=== PATIENT | female | born 1950 | race Caucasian/White ===

== ENCOUNTER → 2020-10-02 15:49 | Outpatient (CLI) | payer MEDICARE, SELFPAY ==
--- NOTE | ~2020-10-02 | XR_ITS ---
XR clavicle LT DATE: 10/02/2020 16:08 INDICATION: Fracture of clavicle TECHNIQUE: AP and angled AP views COMPARISON: None FINDINGS: There is a mildly inferiorly displaced comminuted fracture at the lateral aspect of the cla vicle just proximal to the lateral articular margin. Alignment appears intact at the acromioclavicula r and glenohumeral joints. Diffuse osteopenia. IMPRESSION: Comminuted fracture of the lateral shaft of left clavicle Reviewed, dictated and finalized at location B. ASSEMBLER
== END ==
PROVIDERS: PCP Family Medicine; Visit Provider Physician Assistant
DX: S42.002A Fracture of unspecified part of left clavicle, initial encounter for closed fracture (principal); X58.XXXA Exposure to other specified factors, initial encounter
CPT/HCPCS: 73000

== ENCOUNTER → 2022-12-12 12:10 | Outpatient (CLI) | payer MEDICARE, SELFPAY ==
--- NOTE | ~2022-12-12 | DEXA_ITS ---
Bone Density Report Name: GUERITA LANGE Age: 72 Sex: Female Ethnicity: White Date of : 1950 Indication: osteopenia; height loss; prior fracture; asthma or emphysema; postmenopausal Referring Provider: Janette Blanchard Study: Bone densitometry was performed. Exam Date: December 12, 2022 Accession number: [id number] Bone Density: Region BMD T-score Z-score Classification AP Spine (L1-L4) 0.922 -1.1 1.0 Osteopenia Femoral Neck (Left) 0.638 -1.9 -0.1 Osteopenia Total Hip (Left) 0.777 -1.4 0.2 Osteopenia Femoral Neck (Right) 0.661 -1.7 0.1 Osteopenia Total Hip (Right) 0.791 -1.2 0.3 Osteopenia Total Hip Mean 0.784 -1.3 0.3 Osteopenia World Health Organization criteria for BMD impression classify patients as: Normal (T-score at or above -1.0), Osteopenia (T-score between -1.0 and -2.5), or Osteoporosis (T-score at or below -2.5). 10-year Fracture Risk(1): Major Osteoporotic Fracture 15% Hip Fracture 2.9% Reported Risk Factors: [place] (), Neck BMD=0.638, BMI=19.6, previous fracture (1) FRAX(R) Version 3.08. Fracture probability calculated for an untreated patient. Fracture probability may be lower if the patient has received treatment. Previous Exams: Region Exam Age BMD T-score BMD Change BMD Change Date g/cm2 vs Baseline vs Previous AP Spine(L1-L4) 12/12/2022 72 0.922 -1.1 -0.008 -0.008 07/12/2019 69 0.929 -1.1 Total Hip(Left) 12/12/2022 72 0.777 -1.4 -0.031* -0.031* 07/12/2019 69 0.808 -1.1 Total Hip(Right) 12/12/2022 72 0.791 -1.2 0.006 0.006 07/12/2019 69 0.785 -1.3 *Denotes significance at 95% confidence level, LSC for AP Spine = 0.022 g/cm2, LSC for Total Hip = 0.027 g/cm2 Clinical Information Provided by Patient: Has had a low trauma fracture Has the following medical conditions: Asthma or Emphysema Patient maximum height was 70.0 Menopause Age: 57 No regular weight bearing exercise Does not regularly consume dairy products Drinks caffeinated beverages Onset of menses at age 16 Number of children 2 Impression: The patient has low bone mass, based on the Left Femoral Neck T-score. The patient has an estimated ten-year risk of hip fracture of 2.9% and an estimated ten-year risk of major fracture of 15%, based on the WHO FRAX algorithm. The patient has risk factors, including: previous fracture. The BMD for the Total Hip(Left) decreased, changing
== END ==
PROVIDERS: PCP Family Medicine; Visit Provider Physician Assistant
DX: Z78.0 Asymptomatic menopausal state (principal); M85.88 Other specified disorders of bone density and structure, other site; M85.852 Other specified disorders of bone density and structure, left thigh; M85.851 Other specified disorders of bone density and structure, right thigh
CPT/HCPCS: 77080

== ENCOUNTER 2025-03-27 14:22 | Outpatient (CLI) | payer MEDICARE, SELFPAY ==
--- NOTE | ~2025-03-27 | DEXA_ITS ---
Bone Density Report Name: GUERITA LANGE Age: 75 Sex: Female Ethnicity: White Date of : 1950 Indication: osteopenia; height loss; asthma or emphysema; Referring Provider: IRA PACHECO Study: Bone densitometry was performed. Exam Date: March 27, 2025 Accession number: [id number] Bone Density: Region BMD T-score Z-score Classification AP Spine(L1-L4) 0.914 -1.2 1.1 Osteopenia Femoral Neck (Left) 0.617 -2.1 -0.1 Osteopenia Total Hip (Left) 0.793 -1.2 0.5 Osteopenia Femoral Neck (Right) 0.655 -1.7 0.2 Osteopenia Total Hip (Right) 0.784 -1.3 0.4 Osteopenia Total Hip Mean 0.789 -1.3 0.5 Osteopenia World Health Organization criteria for BMD impression classify patients as: Normal (T-score at or above -1.0), Osteopenia (T-score between -1.0 and -2.5), or Osteoporosis (T-score at or below -2.5). 10-year Fracture Risk(1): Major Osteoporotic Fracture 12% Hip Fracture 2.8% Reported Risk Factors: [place] (), Neck BMD=0.617, BMI=21.0 (1) FRAX(R) Version 3.08. Fracture probability calculated for an untreated patient. Fracture probability may be lower if the patient has received treatment. Previous Exams: Region Exam Age BMD T-score BMD Change BMD Change Date g/cm2 vs Baseline vs Previous AP Spine (L1-L4) 03/27/2025 75 0.914 -1.2 -0.007 (-0.8%) -0.007 (-0.8%) 12/12/2022 72 0.922 -1.1 Total Hip(Left) 03/27/2025 75 0.793 -1.2 0.016 (2.1%) 0.016 (2.1%) 12/12/2022 72 0.777 -1.4 Total Hip(Right) 03/27/2025 75 0.784 -1.3 -0.007 (-0.9%) -0.007 (-0.9%) 12/12/2022 72 0.791 -1.2 *Denotes significance at 95% confidence level, LSC for AP Spine = 0.022 g/cm2, LSC for Total Hip = 0.027 g/cm2 Clinical Information Provided by Patient: Has used the following medications: Vitamin D, Calcium, lisinopril Has the following medical conditions: Asthma or Emphysema Patient maximum height was 70 Menopause Age: 57 No regular weight bearing exercise Does not regularly consume dairy products Drinks caffeinated beverages Onset of menses at age 16 Number of children 2 Impression: The patient has low bone mass, based on the Left Femoral Neck T-score. The patient has an estimated ten-year risk of hip fracture of 2.8% and an estimated ten-year risk of major fracture of 12%, based on the WHO FRAX algorithm. No significant bone loss was observed. Discussion: BONE DENSITY IS LOW AT ONE OR MORE SKELETAL SITES. This patient's lowest T-score is low at one or more skeletal sites. It meets the World Health Organization's (WHO) criteria for ?low bone mass? (T-score between -1.0 and -2.5). The patient's 10-year risk of fracture as calculated by FRAX is less than the threshold where pharmacological therapy is recommended by the National Osteoporosis Foundation (NOF). However, all treatment decisions require clinical judgment and consideration of individual patient factors, including patient preferences, comorbidities, previous drug use, risk factors not captured in the FRAX model (e.g., frailty, falls, vitamin D deficiency, increased bone turnover, interval significant decline in bone density) and possible under or overestimation of fracture risk by FRAX. The patient should follow a healthful lifestyle (good nutrition with adequate calcium and vitamin D, and appropriate weight-bearing exercise). Follow-Up: Consider repeating this study in 2 to 3 years to reassess this patient's status, or sooner if there is some new clinical indication. Reported by: DEVON on 03/27/2025 3:05:00 PM. Reviewed, dictated and finalized at location A.
--- OUTSIDE RECORDS SUMMARY | 2025-03-27 14:36 | XMS_ITS | Encounter Summary ---
Author Organization [facility] Address [address] [place] [address] Phone Care Team Providers Care Unhairer Name Role Phone Urvashi Higgins MD Primary Care Provider [phone] Encounter Details Date Type Department Care Team (Late st Contact Info) Description 01/26/2025 Results Follow-Up [facility] Dermatology [address] [facility] [address] [place] [address] Shanel Hudson MD [address] [facility] [address] [place], [place] [id number] Surgical pathology Social History Tobacco Use Types Packs/Day Years Used Date Smoking Tobacco: Never Comments Unknown Sex and Gender Information Value Date Recorded Sex Assigned at Not on file 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
--- OUTSIDE RECORDS SUMMARY | 2025-03-27 14:36 | XMS_ITS | Clinical Summary ---
Author Organization [facility] Address [address] [place] [address] Care Team Providers Care Evaporator Helper Name Role Phone Urvashi Higgins MD Primary Care Provider [phone] Allergies No known active allergies Medications montelukast (SINGULAIR) 10 mg tablet Active Wixela Inhub 100-50 mcg/dose diskus inhaler INL 1 PUFF PO Q 12 H IN THE MORNING AND IN THE EVENING 0 Active lisinopriL (PRINIVIL,ZESTR IL) 20 mg tablet TK 1 T PO D 0 Active albuterol HFA (PROVENTIL HFA,VENTOLIN HFA,PROAIR HFA) 90 mcg/actuation inhaler INHALE 2 PUFFS PO Q 4 H PRN 0 Active ibuprofen (AdviL) 200 mg tab/cap Advil Active metroNIDAZOLE (METROGEL) 0.75 % gelIndications: Acne Rosacea Use on face once at night 45 g 11 3 Active clindamycin (CLEOCIN T) 1 % external solution Apply topically daily 30 mL 11 5 01/24/20 26 Active doxycycline (doxycycline hyclate) 100 mg capsuleIndicati ons:Rosacea TAKE 1 CAPSULE(100 MG) BY MOUTH TWICE DAILY NEEDED FOR FLARES 60 capsule 11 05/09/202 5 Active Active Problems No known active problems Encounters Date Type Department Care Team Description 02/06/2025 1:00 PM CDT Clinical Support [facility] Dermatology [address] [place] [address] Outpatient Health [address] [place] [address] Neoplasm of unspecified behavior of bone, soft tissue, and skin (Primary Dx) 01/26/2025 Results Follow-Up [facility] Dermatology [address] [place] [address] [address] [place] [phone] Shanel Hudson MD Surgical pathology 01/23/2025 9:30 AM CDT Office Visit [facility] Dermatology [address] [place] [address] [address] [place] [phone] Shanel Hudson MD Neoplasm of unspecified behavior of bone, soft tissue, and skin (Primary Dx); Seborrheic keratoses; Multiple benign nevi; History of nonmelanoma skin cancer; History of melanoma; History of actinic keratoses; Lentigines; Cook angioma; Seborrheic keratoses, inflamed 01/23/2025 Orders Only [facility] [address] [place] [address] Shanel Hudson MD Neoplasm of unspecified behavior of bone, soft tissue, and skin 01/05/2025 1:01 PM CDT - 01/05/2025 11:59 PM CDT Hospital Encounter [facility] ([facility]) [address] [place] [address] Screening mammogram, encounter for Discharge Disposition: Discharge to home or self care from Last 3 Months Family History Medical History Relation Name Comments Cancer Father Family history of malignant neoplasm - (Added by TW Conv) Cancer Mother Family history of malignant neoplasm - (Added by TW Conv) Relation Name Status Comments Father Mother Social History Tobacco Use Types Packs/Day Years Used Date Smoking Tobacco: Never Comments Unknown Sex and Gender Information Value Date Recorded Sex Assigned at Not on file 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 Gender Identity Not on file Sexual Orientation Not on file Obstetrics History Last Filed Vital Signs Vital Sign Reading Time Taken Comments Blood Pressure - - Pulse - - Temperature - - Respiratory Rate - - Oxygen Saturation - - Inhaled Oxygen Concentration - - Weight 62.6 kg (138 lb 0.1 oz) 03/21/2014 3:36 P M CDT Height 177.8 cm (5' 10) 03/21/2014 3:36 PM CDT Body Mass Index 19.8 03/21/2014 3:36 PM CDT Plan of Treatment Health Maintenance Due Date Last Done Comments Colon Cancer Screening-Colonoscopy 1950 Depression Screening 1950 Fall Risk Assessment 1950 Hepatitis C Screening 1950 Osteoporosis Screening-Bone Density Scan 1950 DTaP/Tdap/Td Vaccine (1 - Tdap) 01/24/1963 Hepatitis B Screening 01/24/1970 Pneumococcal vaccine 65+ (1 of 1 - PCV) 01/24/2002 Zoster Vaccine (1 of 2) 01/24/2002 Well Visit 65+ 01/24/2017 Covid-19 Vaccine (3 - 2023-2 5 season) 2024 12/14/2020, 11/22/2020 Influenza Vaccine (Season Ended) 2025 Breast Cancer Screening-Mammogram 01/05/2026 01/05/2025, 12/31/2023, 11/25/2022, Additional history exists Procedures Procedure Name Priority Date/Time Associated Diagnosis Comments SURGICAL PATHOLOGY Routine 01/23/2025 12:43 PM CDT Neoplasm of unspecified behavior of bone, soft tissue, and skin SCREENING MAMMOGRAM BILATERAL W LAMINE Schedule Routine, Read Routine (OP Routine) 01/05/2025 1:15 PM CDT Screening mammogram, encounter for from Last 3 Months Results * Surgical pathology (01/23/2025 12:43 PM CDT) Tissue (Skin, punch biopsy) 01/23/2025 12:43 PM CDT 01/23/2025 12:43 PM CDT [facility]MAT[facility] - 01/26/2025 3:48 PM CDT [facility] results best viewed via link to PDF [facility] [address] [place] [address], [address], [place] [address] [email or web address] Note to Patients: This report may contain a detailed description of human tissue sent by a health care provider to the laboratory for pathologic evaluation. The content of this report is essential for diagnosis and may provide important critical findings. This information may be unfamiliar to patients to review without a medical professional present. It is advised that the patient review this report in the presence of a health care provider who can answer questions and explain the details. FINAL REPORT Patient Information: PATIENT NAME: GUERITA LANGE SEX: F : 1950 (Age: 74) Specimen Information: COLLECTED: 01/23/2025 RECEIVED: 01/23/2025 REPORTED: 01/26/2025 Submitting Physician Information: Shanel Hudson M.D. [address] [place] [address], DERMATOPATHOLOGY REPORT RESULTS DIAGNOSIS: SKIN, RIGHT ARM, PUNCH BIOPSY: FOLLICULAR CYST, INFUNDIBULAR TYPE sxt/ajrr By this signature, I attest that the above diagnosis is based upon my personal examination of the slides(and/or other material indicated in the diagnosis). Napoleon Domínguez M.D. Report Electronically Reviewed and Signed Out By Napoleon Domínguez M.D. 01/26/2025 15:48:05 CLINICAL INFORMATION NOT SPECIFIED SPECIMEN DATA MICROSCOPIC DESCRIPTION: There is a cyst filled with orthokeratotic cornified cells and lined by epidermoid squamous epithelium. (L72.0) GROSS DESCRIPTION: Received in a formalin-containing bottle is a cylindrical piece of pale moralez, finely scaling, slightly crusted skin and adipose tissue measuring 1.0 by 0.8 by 0.4 cm. The surgical margin is inked blue. The specimen is sectioned into 3 pieces and submitted entirely in 2 cassettes with the two end pieces in the first cassette. The end pieces are tagged orange for orienting purposes. Due to shrinkage, measurements may be different than those at time of procedure. sxt/tyc ICD-9 A; ZSD.657 Clerical Data A; 61093 The characteristics of special, immunohistochemical, and immunofluorescence stains and in-situ hybridization tests performed by the [facility] were deemed acceptable in ongoing water quality tester measures and in compliance with regulations drawn from the Clinical Laboratory Improvement Act ab0023 (CLIA '88). Control reactions for all stains performed were deemed adequate and appropriate by a pathologist prior to evaluation of patient tissue. Some diagnoses were rendered with the assistance of laboratory-developed tests utilizing analyte-specific reagents; the performance characteristic of these tests were determined by [facility] and are not cleared or approved by the US Food an Drug administration. Laboratory developed test may only be performed in a facility that is certified by the [facility] as a high-complexity laboratory under CLIA '88. These tests are used for clinical purposes and are not investigational. Shanel Hudson MD LAB PATHOLOGY ORDERABLES Final Result Performing Organization Address City/State/[facility] Co de Phone Number DERMATOPATHOLOGY CENTER [address] [place] [phone] * Screening Mammogram Bilateral W Lamine (01/05/2025 1:15 PM CDT) Anatomical Region Laterality Modality Breast Bilateral Mammography Narrative 01/06/2025 4:17 PM CDT Mammogram Technique: Bilateral Digital Breast Tomosynthesis, Bilateral C-view 2D Screening mammogram. Views obtained: bilateral craniocaudal and bilateral mediolateral oblique. Computer Aided Detection was performed. Mammogram Findings: The present examination has been compared to prior imaging studies performed at [facility] on 10/28/2021, 11/25/2022 and 12/31/2023. The breasts are extremely dense, which lowers the sensitivity of mammography. There is no suspicious abnormality in either breast. Impression: There is no mammographic evidence of malignancy. Annual screening mammography is recommended. Consider breast MRI for supplemental screening given the patient's extremely dense breast tissue. OVERALL FINAL ASSESSMENT: BI-RADS CATEGORY 1: Negative. Procedure Note Hanane Alvarez MD - 01/06/2025 Mammogram Technique: Bilateral Digital Breast Tomosynthesis, Bilateral C-view 2D Screening mammogram. Views obtained: bilateral craniocaudal and bilateral mediolateral oblique. Computer Aided Detection was performed. Mammogram Findings: The present examination has been compared to prior imaging studies performed at [facility] on 10/28/2021, 11/25/2022 and 12/31/2023. The breasts are extremely dense, which lowers the sensitivity of mammography. There is no suspicious abnormality in either breast. Impression: There is no mammographic evidence of malignancy. Annual screening mammography is recommended. Consider breast MRI for supplemental screening given the patient's extremely dense breasttissue. OVERALL FINAL ASSESSMENT: BI-RADS CATEGORY 1: Negative. us Self Screening Mammogram IMG MAMMO PROCEDURES Fi nal Result from Last 3 Months Insurance [facility] MEDICARE [facility] Address: [address] [place] [address] [facility] MDCR HMO REF [facility] MEDICARE ADVANTAGE [facility] CHOICE PLUS AETNA MEDICARE Care Teams Evaporator Helper Relationship Specialty Start Date End Date Urvashi Higgins MD PCP - General 01/14/17
--- OUTSIDE RECORDS SUMMARY | 2025-03-27 14:36 | XMS_ITS | Referral Summary ---
Author Organization [facility] [address] [place] [address] Care Team Providers Care Landfill Grader Name Role Phone Urvashi Higgins MD Primary Care Provider [phone] Encounters Date Type Department Care Team Description 02/06/2025 1:00 PM CDT Clinical Support [facility] Dermatology [address] [place] [address] Outpatient Health [address] [place] [phone] Neoplasm of unspecified behavior of bone, soft tissue, and skin (Primary Dx) 01/26/2025 Results Follow-Up [facility] Dermatology [address] [place] [address] Outpatient Health [address] [place] [phone] Shanel Hudson MD Surgical pathology 01/23/2025 Orders Only [facility] [address] [place] [address] Shanel Hudson MD Neoplasm of unspecified behavior of bone, soft tissue, and skin 01/23/2025 9:30 AM CDT Office Visit [facility] Dermatology [address] [place] [address] Outpatient Health [address] [place] [phone] Shanel Hudson MD Neoplasm of unspecified behavior of bone, soft tissue, and skin (Primary Dx); Seborrheic keratoses; Multiple benign nevi; History of nonmelanoma skin cancer; History of melanoma; History of actinic keratoses; Lentigines; Cook angioma; Seborrheic keratoses, inflamed 01/05/2025 1:01 PM CDT - 01/05/2025 11:59 PM CDT Hospital Encounter 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 Gender Identity Not on file Sexual Orientation Not on file Last Filed Vital Signs Vital Sign Reading [...] 03/21/2014 3:36 PM CDT Plan of Treatment Not on file Procedures Procedure Name Priority Date/Time Associated Diagnosis [...] 12:43 PM CDT 01/23/2025 12:43 PM CDT [facility] DERMATOPATH[facility]Y [facility] - 01/26/2025 3:48 PM CDT EPIC results best viewed via link to PDF [facility] [address] [place] [address], [address], [place] [address] [email or web address] Note to Patients: This report may contain [...] details. FINAL REPORT Patient Information: PATIENT NAME: SHANTA LANGE SEX: F : 1950 (Age: 74) Specimen Information: COLLECTED: 01/23/2025 RECEIVED: 01/23/2025 REPORTED: 01/26/2025 Submitting Physician Information: Shanel Hudson M.D. [address] [facility] ([facility], [address] [place] [address], DERMATOPATHOLOGY REPORT RESULTS DIAGNOSIS: SKIN, RIGHT ARM, [...] sxt/tyc ICD-9 A; ZSD.657 Clerical Data A; 55006 The characteristics of special, immunohistochemical, and immunofluorescence stains and in-situ hybridization tests performed by the [facility] were deemed acceptable in ongoing housing quality standard inspector measures and in compliance with regulations drawn from the Clinical Laboratory Improvement Act qi3558 (CLIA '88). Control reactions for all stains performed were deemed adequate and appropriate by a pathologist prior to evaluation of patient tissue. Some diagnoses were rendered with the assistance of laboratory-developed tests utilizing analyte-specific reagents; the performance characteristic of these tests were determined by [facility] and are not cleared or approved by the US Food an Drug administration. Laboratory developed test may only be performed in a facility that is certified by the [facility] as a high-complexity laboratory under CLIA '88. These tests are used for clinical purposes and are not investigational. us Shanel Hudson MD LAB PATHOLOGY ORDERABLES Final Result DERMATOPATHOLOGY CENTER [address] [place] [address] * Screening Mammogram Bilateral W Lamine (01/05/2025 1:15 PM CDT) Anatomical Region Laterality Modality Breast Bilateral Mammography Narrative 01/06/2025 4:17 PM CDT Mammogram Technique: Bilateral Digital Breast Tomosynthesis, Bilateral C-view 2D Screening mammogram. Views obtained: bilateral craniocaudal and bilateral mediolateral oblique. Computer Aided Detection was performed. Mammogram Findings: The present examination has been compared to prior imaging studies performed at [facility] on 10/28/2021, 11/25/2022 and 12/31/2023. The [...] compared to prior imaging studies performed at [facility] on 10/28/2021, 11/25/2022 and 12/31/2023. The [...] nal Result from Last 3 Months Insurance [employer] MEDICARE [facility] MDCR HMO REF [place] [id number] MEDICARE ADVANTAGE [facility] CHOICE PLUS AET[employer] MEDICARE Care Teams Landfill Grader Relationship Specialty Start Date End Date Urvashi Higgins MD PCP - General 01/14/17
== END 2025-03-27 14:23 | disposition home or self-care (01) ==
PROVIDERS: PCP Family Medicine; Visit Provider Student in an Organized Health Care Education/Training Program
DX: M85.89 Other specified disorders of bone density and structure, multiple sites (principal)
CPT/HCPCS: 77080